=== PATIENT | male | born 1970 | race Asian ===

== ENCOUNTER 2016-08-25 22:26 | Emergency (ER) | payer OTHER ==
[2016-08-25] MEDS ORDERED: MORPHINE 2 MG/ML SYRINGE IVP STA ×2 (22:42→23:46)
[2016-08-25] MEDS ORDERED: SODIUM CHLORIDE 0.9% 1,000 ML IV ONE ×2 (22:42→23:46)
[2016-08-25] MEDS ORDERED: ONDANSETRON 4 MG/2 ML VIAL IVP STA (22:42)
[2016-08-25] MEDS ORDERED: MORPHINE 2 MG/ML SYRINGE ONE (22:51)
[2016-08-25] MEDS ORDERED: ONDANSETRON 4 MG/2 ML VIAL ONE (22:52)
[2016-08-25 22:53] LABS: BASOPHILS # (AUTO) 0.1 10^3/uL (0.0-0.1); BASOPHILS % (AUTO) 0.6 %; EOSINOPHILS # (AUTO) 0.1 10^3/uL (0.0-0.7); EOSINOPHILS % (AUTO) 1.6 %; HCT - HEMATOCRIT 42.3 % (42.0-52.0); HGB - HEMOGLOBIN 14.4 g/dL (14.0-18.0); LYMPHOCYTES # (AUTO) 1.4 10^3/uL (1.5-3.5); LYMPHOCYTES % (AUTO) 16.9 %; MEAN CORPUSCULAR HEMOGLOBIN 30.9 pg (27.0-31.0); MEAN CORPUSCULAR HGB CONC 34.2 g/dL (32.0-36.0); MEAN CORPUSCULAR VOLUME 90.3 fL (80.0-94.0); MONOCYTES # (AUTO) 0.5 10^3/uL (0.0-1.0); MONOCYTES % (AUTO) 6.1 %; NEUTROPHILS # (AUTO) 6.4 10^3/uL (1.5-6.6); NEUTROPHILS % (AUTO) 74.8 %; NUCLEATED RED BLOOD CELLS AUTO 0.1 /100WBC; RED BLOOD COUNT 4.68 10^6/uL (4.70-6.10); RED CELL DISTRIBUTION WIDTH 14.1 % (12.0-15.0); UNCORRECTED WHITE BLOOD COUNT 8.5 x10^3/uL; WHITE BLOOD COUNT 8.5 x10^3/uL (4.8-10.8)
[2016-08-25 23:08] LABS: PARTIAL THROMBOPLASTIN TIME 26.6 secs (24.9-33.3)
[2016-08-25 23:34] LABS: ALBUMIN/GLOBULIN RATIO 1.3 (1.0-2.2); BILIRUBIN,TOTAL 3.2 mg/dL (0.2-1.0); CALCIUM 9.5 mg/dL (8.5-10.3); CREATININE 0.8 mg/dL (0.6-1.2); TOTAL PROTEIN 8.2 g/dL (6.7-8.2)
[2016-08-26] MEDS ORDERED: MORPHINE 2 MG/ML SYRINGE ONE (00:28)
[2016-08-26] MEDS ORDERED: ONDANSETRON 4 MG/2 ML VIAL IVP STA (00:42)
--- NOTE | 2016-08-26 00:44 | Ultrasound Preliminary Report ---
Exam: US Abdomen Limited IMPRESSION: 1. Gallstone in the gallbladder neck with gallbladder wall thickening. Positive sonographic Vil[place] si gn. In the appropriate clinical circumstances, imaging findings are concerning for acute cholecystiti s. 2. Fatty liver. No liver mass. [facility] SITE ID: [id number]
[2016-08-26] MEDS ORDERED: ONDANSETRON 4 MG/2 ML VIAL ONE (00:49)
--- NOTE | 2016-08-26 00:53 | Ultrasound Report ---
EXAM: ABDOMEN ULTRASOUND LIMITED, RUQ EXAM DATE: 08/26/2016 12:21 AM. CLINICAL HISTORY: Abdominal pain, history of pancreatitis. COMPARISON: None. TECHNIQUE: Real-time scanning was performed with static images obtained. FINDINGS: Liver: Liver parenchyma is heterogeneous and mild to moderately hyperechoic. No discrete liver torsten s or intrahepatic bile duct dilation. However, evaluation for masses is limited secondary to the ech ogenicity. 18.2 cm. Main portal vein flow: Hepatopetal. Gallbladder: 2.1 cm stone in the gallbladder neck with mild gallbladder wall thickening. Multiple sma ller stones are noted. Per report, the patient had right upper quadrant pain during imaging. Biliary System: CBD measures 9.2 mm. No intrahepatic or extrahepatic ductal dilatation. Right kidney: No hydronephrosis. Pancreas: Not well-seen. Other: None. IMPRESSION: 1. Gallstone in the gallbladder neck with gallbladder wall thickening. Positive sonographic Vilchis si gn. In the appropriate clinical circumstances, imaging findings are concerning for acute cholecystiti s. 2. Fatty liver. No liver mass. [facility] Referring Provider Line: [phone] SITE ID: [id number]
--- NOTE | 2016-08-26 01:25 | ED Physician Documentation ---
PD HPI ABD PAIN - Stated complaint Stated Complaint: CHEST/BACK PX - Chief complaint Chief Complaint: General - History obtained from History obtained from: Patient, Family - History of Present Illness Timing - onset: Today Timing - details: Gradual onset, Still present Quality: Cramping, Aching, Stabbing Location: Epigastric Radiation: Upper back Associated symptoms: Nausea. No: Fever, Vomiting, Hematemesis, Diarrhea, Constipation Similar symptoms before: Work up / diagnostics, Treatment Recently seen: Not recently seen - Additional information Additional information: Patient is a 45 year old male with no significant past medical history who is presenting to the emergency department for abdominal pain. patient states that about a month ago while in in [place] he had similar symptoms and patient was found to have pancreatitis, likely secondary to gall bladder disease. patient states that this morning he had abdominal pain. He went to see his pmd who stated that he would probably need an ultrasound. patient states that his pain continued so he came to the emergency department for evaluation. Review of Systems Constitutional: denies: Fever, Chills Eyes: denies: Loss of vision Ears: denies: Ear pain Nose: denies: Rhinorrhea / runny nose, Congestion Throat: denies: Dental pain / toothache, Sore throat Cardiac: denies: Chest pain / pressure, Palpitations GI: reports: Abdominal Pain, Abdominal Swelling, Nausea. denies: Vomiting, Constipation, Diarrhea : denies: Dysuria, Frequency, Hesitancy, Incontinent Skin: denies: Rash, Lesions Musculoskeletal: reports: Back pain. denies: Neck pain, Extremity pain, Joint pain, Extremity swelling Neurologic: denies: Generalized weakness, Focal weakness, Numbness Psychiatric: denies: Depressed, Suicidal, Anxiety PD PAST MEDICAL HISTORY - Past Medical History Past Medical History: Yes - Social History Does the pt smoke?: No Smoking Status: Never smoker Does the pt drink ETOH?: Yes Does the pt have substance abuse?: No - Immunizations Immunizations are current?: Yes PD ED PE NORMAL - Vitals Vital signs reviewed: Yes - General General: Alert and oriented X 3, Well developed/nourished - HEENT HEENT: Atraumatic, PERRL, Pharynx benign - Neck Neck: Supple, no meningeal sign, No JVD - Cardiac Cardiac: RRR, No murmur, No rub - Respiratory Respiratory: No respiratory distress, Clear bilaterally - Derm Derm: Normal color, Warm and dry, No rash - Extremities Extremities: No deformity, No tenderness to palpate, Normal ROM s pain, No edema - Neuro Neuro: Alert and oriented X 3, ecological modeler 2-12 intact, No motor deficit, No sensory deficit, Normal speech - Psych Psych: Normal mood, Normal affect PD ED PE EXPANDED - General General: In Pain - Abdomen Abdomen: Tender to palpation, Epigastric. No: Rebound, Guarding Results - Vitals Vitals: Vital Signs - 24 hr 08/25/16 08/25/16 08/26/16 22:32 23:51 00:35 Temperature 36.1 C L Heart Rate 68 61 68 Respiratory 23 20 18 Rate Blood Pressure 163/103 H 149/89 H 128/75 O2 Saturation 100 100 100 08/26/16 08/26/16 02:04 03:09 Temperature Heart Rate 67 69 Respiratory 18 Rate Blood Pressure 131/70 H O2 Saturation 100 100 Oxygen O2 Source Room air - EKG (time done) 2235 Rate: Rate (enter#) (63) Rhythm: NSR [place]: Normal Intervals: Normal NE QRS: Normal Ischemia: Normal ST segments Compare to prior EKG: Old EKG unavailable - Labs Labs: Laboratory Tests 08/25/16 08/25/16 08/25/16 22:42 22:42 22:42 WBC 8.5 RBC 4.68 L Hgb 14.4 Hct 42.3 MCV 90.3 MCH 30.9 MCHC 34.2 RDW 14.1 Plt Count 316 MPV 7.0 L Neut # 6.4 Lymph # 1.4 L [place] # 0.5 Eos # 0.1 Baso # 0.1 Absolute Nucleated RBC 0.01 Nucleated RBCs 0.1 PT 11.0 INR 1.0 APTT 26.6 Sodium 139 Potassium 4.0 Chloride 99 L Carbon Dioxide 31 Anion Gap 9.0 BUN 13 Creatinine 0.8 Estimated GFR (MDRD) 104 Glucose 118 H Calcium 9.5 Total Bilirubin 3.2 H AST 1031 H ALT 941 H Alkaline Phosphatase 134 H B-Natriuretic Peptide Total Protein 8.2 Albumin 4.7 Globulin 3.5 Albumin/Globulin Ratio 1.3 Lipase 4200 H 08/25/16 22:42 WBC RBC Hgb Hct MCV MCH MCHC RDW Plt Count MPV Neut # Lymph # [place] # Eos # Baso # Absolute Nucleated RBC Nucleated RBCs PT INR APTT Sodium Potassium Chloride Carbon Dioxide Anion Gap BUN Creatinine Estimated GFR (MDRD) Glucose Calcium Total Bilirubin AST ALT Alkaline Phosphatase B-Natriuretic Peptide 11 Total Protein Albumin Globulin Albumin/Globulin Ratio Lipase - Rads (name of study) abdomen ultrasound Radiology: Final report received (gallstone in gallbladder neck with wall thickening, ) PD MEDICAL DECISION MAKING - ED course Complexity details: reviewed old records, reviewed results, re-evaluated patient , considered differential, d/w patient, d/w family, d/w clinical documentation consultant ED course: Patient was seen and examined at bedside. patient was in moderate pain. IV access was gained and labs were drawn. patient was started on zofran, morphine and fluids. ultrasound was ordered. Patient's findings were suspicious for gallstone pancreatitis. Case was discussed with party demonstrator surgeon. he stated that patient would need an ercp. Calls were made to multiple places and the closes available be was in [place]. Case was discussed with Dr. vega, and party demonstr[facility] GI who accepted the patient. Arrangements were made for transfer. Patient was treated with an additional 1mg of dilaudid and another liter of fluid. Patient was transferred in stable condition. Departure - Departure Disposition: 02 Transfer Acute Care Hosp Clinical Impression: Pancreatitis due to biliary obstruction Condition: Stable
[2016-08-26] MEDS ORDERED: HYDROmorphone 1 MG/ML SYRINGE IVP STA (03:44)
[2016-08-26] MEDS ORDERED: HYDROmorphone 1 MG/ML SYRINGE ONE (03:46)
[2016-08-26 04:54] VITALS: BP 128/60
== END 2016-08-26 04:54 | disposition short-term general hospital (02) ==
LOC: ED 22:26
DX: K85.10 Biliary acute pancreatitis without necrosis or infection (principal); K76.0 Fatty (change of) liver, not elsewhere classified
CPT/HCPCS: 36415; 76705; 80053; 83690; 83880; 85025; 85610; 85730; 93005; 96374; 96375; 96376; 99284; 99285; J1170; 83036

== ENCOUNTER 2020-05-20 09:30 | Outpatient (CLI) | payer OTHER | END 2020-05-20 23:59 | disposition home or self-care (01) | LOC: COV 09:30 | PROVIDERS: ATTEND Family Medicine | DX: R05 Cough (principal); Z20.822 Contact with and (suspected) exposure to COVID-19 ==